=== PATIENT | male | born 1985 | race Caucasian/White ===

== ENCOUNTER 2017-04-04 13:56 | Emergency (ER) | payer OTHER ==
[~2017-04-04] VITALS: Ht 175.3 cm; Wt 94.4 kg
[~2017-04-04 13:56] MED LIST: TYLENOL EXTRA500 MG PO
[2017-04-04 14:27] LABS: HEMATOCRIT 44.4 % (38.0-50.0); MCH 29.9 PG (29.0-34.0); MCHC 35.1 G/DL (30.0-36.0); MCV 85.1 FL (86-99); MEAN PLAT.VOLUME 8.6 uM^3 (9.0-12.4); PLATELET COUNT 308 K/uL (156-360); RBC DIS.WIDTH-CV 11.6 % (11.8-14.6); RBC DIS.WIDTH-SD 35.7 % (39-53); RED BLOOD COUNT 5.22 M/uL (4.00-5.50)
[2017-04-04 14:43] LABS: CHLORIDE 106 mEq/L (99-109); POTASSIUM 3.9 mEq/L (3.7-5.4); SODIUM 139 mEq/L (136-147)
[2017-04-04 14:44] LABS: GLUCOSE 88 mg/dL (70-99)
[2017-04-04 14:46] LABS: ANION GAP 9 MEQ/L (2-14)
[2017-04-04 14:48] LABS: GFR ESTIMATE (CALCULATED) > 59 mL/min/
[2017-04-04 14:49] LABS: TROP-I INTERPRETATION NEGATIVE; TROPONIN-I < 0.01 ng/mL (0.0-0.30); UREA NITROGEN (BUN) 12 mg/dL (9-23)
[2017-04-04 17:26] LABS: TROP-I INTERPRETATION NEGATIVE; TROPONIN-I < 0.01 ng/mL (0.0-0.30)
[2017-04-04 18:21] VITALS: BP 129/73
== END 2017-04-04 18:21 | disposition home or self-care (01) ==
LOC: EME 13:56
PROVIDERS: Nurse Practitioner Family
DX: R07.89 Other chest pain (principal); R03.0 Elevated blood-pressure reading, without diagnosis of hypertension
CPT/HCPCS: 71020; 80048; 84484; 85027; 93005; 99281; 99284